=== PATIENT | female | born 1950 | race African-American/Black ===

== ENCOUNTER 2023-01-12 19:59 | Inpatient (IN) | payer BC ==
[2023-01-12 20:48] VITALS: BMI 27.4
[2023-01-12] MEDS ORDERED: LOPERAMIDE HCL 2 MG CAPSULE PO PRN (21:40)
[2023-01-12] MEDS ORDERED: POLYETHYLENE GLYCOL (HEALTHYLAX) 3350 17 GM PACKET PO PRN (21:40)
[2023-01-12] MEDS ORDERED: hydrOXYzine PAMOATE 25 MG CAPSULE (FP) PO PRN (21:40)
[2023-01-12] MEDS ORDERED: guaiFENesin 600 MG TABLET.ER (FP) PO PRN (21:40)
[2023-01-12] MEDS ORDERED: NALOXONE HCL 0.4 MG/ML VIAL IM PRN (21:40)
[2023-01-12] MEDS ORDERED: BENZOCAINE/MENTHOL (CHLORASEPTIC ) LOZENGE MM PRN (21:40)
[2023-01-12] MEDS ORDERED: BISMUTH SUBSALICYLATE 524 MG/30 ML PO PRN (21:40)
[2023-01-12] MEDS ORDERED: MAG HYDROX/AL HYDROX/SIMETH 30 ML UNIT-DOSE CUP PO PRN (21:40)
[2023-01-12] MEDS ORDERED: IBUPROFEN 400 MG TABLET (FP) PO PRN (21:40)
[2023-01-12] MEDS ORDERED: BENZONATATE 200 MG CAPSULE PO PRN (21:40)
[2023-01-12] MEDS ORDERED: NICOTINE POLACRILEX 2 MG GUM BUC PRN (21:40)
[2023-01-12] MEDS ORDERED: ACETAMINOPHEN 325 MG TABLET (FP) PO PRN (21:40)
[2023-01-12] MEDS ORDERED: DICYCLOMINE HCL 10 MG CAPSULE PO PRN (21:40)
[2023-01-12] MEDS ORDERED: MAGNESIUM HYDROX 2400MG/30ML ORAL SUSPENSION 30 ML CUP PO PRN (21:40)
[2023-01-12] MEDS ORDERED: ONDANSETRON *ODT* 4 MG TABLET SL PRN (21:40)
[2023-01-12] MEDS ORDERED: NALOXONE HCL (KLOXXADO) 8 MG SPRAY NS PRN (21:40)
[2023-01-12] MEDS: THIAMINE HCL 100 MG TABLET (FP) PO SCH (22:52)
[2023-01-12] MEDS: MELATONIN 5 MG TABLETS PO SCH (22:52)
[2023-01-13] MEDS: PRENATAL VITAMINS W/ FOLIC ACID TABLET (FP) PO SCH (10:23)
[2023-01-13] MEDS: NICOTINE 14 MG/24 HOURS TOPICAL PATCH TD SCH (10:23)
[2023-01-13 11:00] LABS: HEMATOCRIT 32.7 % (32.4-45.2); HEMOGLOBIN 11.4 GM/dL (10.7-15.3); MCH 30.4 pg (25.7-33.7); MCHC 34.9 g/dl (32.0-36.0); MEAN PLT VOLUME 9.6 fl (7.5-11.1); PLATELET COUNT 179 10^3/uL (134-434); RBC 3.76 M/mm3 (3.60-5.2); RDW 15.6 % (11.6-15.6); WHITE BLOOD COUNT 2.7 K/mm3 (4.0-10.0)
[2023-01-13 11:01] LABS: POTASSIUM 3.9 mmol/L (3.5-5.1)
[2023-01-13 11:07] LABS: ALBUMIN 3.3 g/dl (3.4-5.0); BLOOD UREA NITROGEN 12.8 mg/dL (7-18); CALCIUM 8.6 mg/dL (8.5-10.1)
[2023-01-13 11:11] LABS: CREATININE 0.7 mg/dL (0.55-1.3)
[2023-01-13 11:12] LABS: BILIRUBIN,TOTAL 0.8 mg/dL (0.2-1); TOT PROT 6.2 g/dl (6.4-8.2)
[2023-01-13] MEDS: IBUPROFEN 600 MG TABLET (FP) PO PRN (15:00)
[2023-01-13] MEDS ORDERED: cloNIDine HCL 0.1 MG TABLET PO ONE (17:39)
[2023-01-13] MEDS: MELATONIN 5 MG TABLETS PO SCH (22:26)
[2023-01-13] MEDS: THIAMINE HCL 100 MG TABLET (FP) PO SCH (22:26)
[2023-01-14 06:29] VITALS: RESP 18
[2023-01-14] MEDS: NICOTINE 14 MG/24 HOURS TOPICAL PATCH TD SCH (09:44)
[2023-01-14] MEDS: PRENATAL VITAMINS W/ FOLIC ACID TABLET (FP) PO SCH (09:44)
[2023-01-14 09:48] VITALS: TEMP 98.1
[2023-01-14] MEDS ORDERED: HYDROCHLOROTHIAZIDE 12.5 MG CAPSULE (FP) PO SCH (10:00)
[2023-01-14] MEDS ORDERED: amLODIPine BESYLATE 10 MG TABLET (FP) PO SCH (10:00)
[2023-01-14] MEDS: IBUPROFEN 600 MG TABLET (FP) PO PRN (10:47)
[2023-01-14 11:28] VITALS: BP 154/74; PULSE 74
== END 2023-01-14 11:32 | disposition home or self-care (01) | DRG 897 ==
LOC: YASAS 19:59 → UNDOADMIN 22:16 → Y6N 22:16
PROVIDERS: ADMIT Allergy & Immunology; ATTEND Surgery
PROC: HZ2ZZZZ Detoxification Services for Substance Abuse Treatment (ICD-10-PCS; principal; 2023-01-12)
DX: F10.230 Alcohol dependence with withdrawal, uncomplicated (principal); F14.20 Cocaine dependence, uncomplicated; F17.210 Nicotine dependence, cigarettes, uncomplicated; F19.24 Other psychoactive substance dependence with psychoactive substance-induced mood disorder; I10 Essential (primary) hypertension; M17.11 Unilateral primary osteoarthritis, right knee; Z86.19 Personal history of other infectious and parasitic diseases; Z91.81 History of falling
CPT/HCPCS: 36415; 80053; 85027; 86593; 86780; C9803-CS; U0003; U0005